=== PATIENT | female | born 1960 | race Caucasian/White ===

== ENCOUNTER 2017-10-09 11:40 | Emergency (ER) | payer BC ==
[~2017-10-09] VITALS: Ht 162.6 cm; Wt 65.8 kg
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
[2017-10-09 13:34] VITALS: BP 131/78
== END 2017-10-09 13:35 | disposition home or self-care (01) ==
LOC: ER 11:42
DX: S52.132A Displaced fracture of neck of left radius, initial encounter for closed fracture (principal); V19.40XA Pedal cycle driver injured in collision with unspecified motor vehicles in traffic accident, initial encounter; Y93.55 Activity, bike riding; Y92.89 Other specified places as the place of occurrence of the external cause; Y99.8 Other external cause status
CPT/HCPCS: 73080; 73110; 99284; A4606; Z7610